=== PATIENT | male | born 1950 | race Native Hawaiian/Other Pacific Islander ===

== ENCOUNTER 2018-10-21 08:24 | Outpatient (CLI) | payer OTHER, MEDICARE ==
[~2018-10-21 08:24] MED LIST: ACID CONTROLLER20 MG OR; CARV3.12 PO; EQ ASPIRIN81 MG OR; FURO40TA93 PO; LIPITOR80 MG PO; LISI20TA11 PO; PRAS10TA PO
[2018-10-21 08:38] LABS: PLATELET COUNT 276 K/uL (142-355)
[2018-10-21 09:03] LABS: POTASSIUM 4.1 mmol/L (3.6-5.2)
== END 2018-10-21 20:56 | disposition home or self-care (01) ==
LOC: LABW 08:24
PROVIDERS: Internal Medicine
DX: I10 Essential (primary) hypertension (principal); Z12.5 Encounter for screening for malignant neoplasm of prostate; N40.0 Benign prostatic hyperplasia without lower urinary tract symptoms
CPT/HCPCS: 36415; 80053; 80061; 81000; 84153; 84439; 84443; 85027

== ENCOUNTER 2018-11-25 08:02 | Outpatient (CLI) | payer OTHER, MEDICARE ==
[2018-11-25 08:20] LABS: PLATELET COUNT 268 K/uL (142-355)
== END 2018-11-25 23:14 | disposition home or self-care (01) ==
LOC: LABW 08:02
PROVIDERS: Internal Medicine
DX: R79.89 Other specified abnormal findings of blood chemistry (principal)
CPT/HCPCS: 36415; 85027

== ENCOUNTER 2018-12-19 07:54 | Outpatient (CLI) | payer OTHER, MEDICARE ==
[2018-12-19 08:20] LABS: PLATELET COUNT 214 K/uL (142-355)
[2018-12-19 11:19] LABS: POTASSIUM 3.4 mmol/L (3.6-5.2)
== END 2018-12-19 19:53 | disposition home or self-care (01) ==
LOC: LABW 07:54
PROVIDERS: Internal Medicine
DX: R79.89 Other specified abnormal findings of blood chemistry (principal)
CPT/HCPCS: 36415; 80053; 85027

== ENCOUNTER 2019-12-22 14:59 | Outpatient (CLI) | payer OTHER, MEDICARE ==
[2019-12-22 15:18] LABS: PLATELET COUNT 235 K/uL (142-355)
[2019-12-22 15:42] LABS: POTASSIUM 4.8 mmol/L (3.6-5.2)
== END 2019-12-22 19:14 | disposition home or self-care (01) ==
LOC: LAB 14:59
PROVIDERS: Internal Medicine
DX: I25.10 Atherosclerotic heart disease of native coronary artery without angina pectoris (principal); I10 Essential (primary) hypertension; I42.8 Other cardiomyopathies
CPT/HCPCS: 80053; 80061; 81000; 83880; 84439; 84443; 85027

== ENCOUNTER 2020-09-29 08:05 | Outpatient (CLI) | payer OTHER, MEDICARE ==
[2020-09-29 08:20] LABS: PLATELET COUNT 264 K/uL (142-355)
== END 2020-09-29 20:59 | disposition home or self-care (01) ==
LOC: LABW 08:05
PROVIDERS: ATTEND Internal Medicine
DX: I25.10 Atherosclerotic heart disease of native coronary artery without angina pectoris (principal); I42.9 Cardiomyopathy, unspecified
CPT/HCPCS: 36415; 80053; 80061; 81000; 83880; 84439; 84443; 85027

== ENCOUNTER 2021-04-11 08:03 | Outpatient (CLI) | payer OTHER, MEDICARE ==
[2021-04-11 08:45] LABS: POTASSIUM 4.2 mmol/L (3.6-5.2)
[2021-04-11 08:49] LABS: PLATELET COUNT 234 K/uL (142-355)
== END 2021-04-11 19:24 | disposition home or self-care (01) ==
LOC: LABW 08:03
PROVIDERS: ATTEND Internal Medicine
DX: I42.8 Other cardiomyopathies (principal); I25.10 Atherosclerotic heart disease of native coronary artery without angina pectoris; I10 Essential (primary) hypertension
CPT/HCPCS: 36415; 80053; 80061; 81000; 83880; 84439; 84443; 85027

== ENCOUNTER 2021-11-07 16:34 | Outpatient (CLI) | payer OTHER, MEDICARE | END 2021-11-07 19:12 | disposition home or self-care (01) | LOC: RAD 16:34 | PROVIDERS: ATTEND Internal Medicine | DX: J40 Bronchitis, not specified as acute or chronic (principal) ==

== ENCOUNTER 2021-12-15 11:44 | Outpatient (CLI) | payer OTHER, MEDICARE ==
[2021-12-15 12:32] LABS: POTASSIUM 4.1 mmol/L (3.6-5.2)
== END 2021-12-15 19:04 | disposition home or self-care (01) ==
LOC: LAB 11:44
PROVIDERS: ATTEND Internal Medicine
DX: I10 Essential (primary) hypertension (principal)
CPT/HCPCS: 80053; 80061

== ENCOUNTER 2022-08-02 13:17 | Outpatient (CLI) | payer OTHER, MEDICARE ==
[2022-08-02 13:26] LABS: PLATELET COUNT 310 K/uL (142-355)
[2022-08-02 13:27] LABS: POTASSIUM 4.5 mmol/L (3.6-5.2)
== END 2022-08-02 17:00 ==
LOC: LAB 13:17 → CT 13:30 → LAB 17:00
PROVIDERS: ATTEND Internal Medicine
DX: I25.10 Atherosclerotic heart disease of native coronary artery without angina pectoris (principal); R06.09 Other forms of dyspnea
CPT/HCPCS: 80053; 80061; 81002; 83880; 84439; 84443; 85027; 85379; Q9963

== ENCOUNTER 2022-08-14 08:28 | Outpatient (CLI) | payer OTHER, MEDICARE | END 2022-08-14 18:54 | disposition home or self-care (01) | LOC: RESP 08:28 | PROVIDERS: ATTEND Internal Medicine | DX: J40 Bronchitis, not specified as acute or chronic (principal); R06.02 Shortness of breath ==

== ENCOUNTER 2022-09-19 12:41 | Outpatient (CLI) | payer OTHER, MEDICARE ==
[2022-09-19 13:00] LABS: PLATELET COUNT 265 K/uL (142-355)
== END 2022-09-19 20:29 | disposition home or self-care (01) ==
LOC: LAB 12:41
PROVIDERS: ATTEND Internal Medicine
DX: D72.828 Other elevated white blood cell count (principal)
CPT/HCPCS: 85027

== ENCOUNTER 2022-10-29 12:39 | Outpatient (CLI) | payer OTHER, MEDICARE ==
[2022-10-29 13:26] LABS: PLATELET COUNT 253 K/uL (142-355)
== END 2022-10-29 20:26 | disposition home or self-care (01) ==
LOC: LAB 12:39
PROVIDERS: ATTEND Internal Medicine
DX: D64.89 Other specified anemias (principal)
CPT/HCPCS: 85027